=== PATIENT | female | born 1970 | race Caucasian/White ===

== ENCOUNTER 2023-10-12 19:22 | Emergency (ER) | payer BC, SELFPAY ==
[2023-10-12 19:25] VITALS: BP 177/86
[2023-10-12] MEDS: TYLENOL 650 MG PO (19:37)
[2023-10-12 19:57] LABS: COVID-19 Antigen Positive (Negative)
--- NOTE | 2023-10-12 21:34 | ED.GENMED ---
History of Present Illness
General
Chief Complaint: Cold/Flu/URI Symptoms
Source: patient
Time Seen by Provider: 10/12/23 21:27
Travel History
Have you had any contact with someone who has COVID-19?: No
Do you have any symptoms of coronavirus? Fever > 100 degrees, chills, cough, shortness of breath, sore throat, loss of taste or smell, muscle aches, or headache?: Yes
Symptoms:: fever
History of Present Illness
History of Present Illness:
53-year-old female presents emergency room complaining of sore throat. Positive chills. No shortness of breath. Patient has a distant history of breast cancer but under no treatment this time. She does not take any prescription medication though
does take [id number] Prilosec and antihistamine. She is tolerating oral intake.
Past History
Past History
ED Past Medical History: Cancer (breast)
ED Past Surgical History: Other (mastectomy)
Patient has exhibited threatening behavior?: No
Social History
Living: with family
Phy Exam
Physical Exam
Physical Exam:
General: Awake, Alert, Oriented X3. No acute distress.
Vitals: Febrile in triage
Head: Atraumatic
Eyes: Pupils equal, EOMI
Throat: Airway intact, no exudates
Neck: Trachea midline
Lungs: Clear and equal b/l
Heart: Regular rate, no murmurs
Neuro: Grossly nonfocal
Skin: Warm, dry, no rash
Extremities: pulses equal b/l, no edema
Course
Orders/Labs/Results
Orders:
Orders
10/12/23 19:30
Comprehensive Metabolic Panel Urgent
10/12/23 19:32
Acetaminophen [Tylenol] 650 mg PO NOW STA
10/12/23 19:45
COVID-19 Antigen Urgent
Source: Nasal Swab
Influenza A+B Rapid Molecular Urgent
[facility] Source: Nasal Swab
Specimen Description:
Rapid Strep Group A Urgent
[facility] Source: Throat/Pharynx
Specimen Description:
Date Specimen was Collected: 10/12/23
Time Specimen was Collected: 19:31
Abnormal Lab Results
10/12/23
19:45
SARS-CoV-2 Antigen Positive A
(Negative)
10/12/23 19:30
Vital Signs
Initial and Last Documented VS:
Initial Vital Signs
Temp Pulse Resp BP Pulse Ox
103.2 F H 140 18 177/86 98
10/12/23 19:25 10/12/23 19:25 10/12/23 19:25 10/12/23 19:25 10/12/23 19:25
Last Documented Vital Signs
Temp Pulse Resp BP Pulse Ox
103.2 F H 140 18 177/86 98
10/12/23 19:25 10/12/23 19:25 10/12/23 19:25 10/12/23 19:25 10/12/23 19:25
MDM/Problems Addressed
Differential Diagnosis Includes:
COVID, influenza, other viral illness
MDM/Problems Addressed:
Patient is COVID-positive. She is minimally symptomatic. She is tolerating oral intake. Discussed oral Paxlovid but patient has taken them before and does not wish to take them again.
*Pulse Oximetry
Patient hypoxic: no
*Critical Care Note
Total Time (30-74mins, 75-104mins- exclusive of procedures): Not Applicable
ED Attending Note
-
Portions of this chart may have been created with voice recognition software.� Occasional wrong word or��sound alike� substitutions may have occurred due to the inherent limitations of voice recognition software.
Discharge Plan
Departure
Patient Disposition: Home (Routine Discharge)
Date of Disposition: 10/12/23
Time of Disposition: 21:34
Patient with high blood pressure during this ER visit?: Yes
Condition: Good
Discharge Problem:
COVID-19
Instructions: COVID-19 (DC), BLOOD PRESSURE
Interventions
Interventions:
*Risk Screen - Suicide Last Done: 10/12/23 19:25
*General Assessment Last Done: 10/12/23 19:25
*Neglect/Abuse Screening Last Done: 10/12/23 19:25
ED- Fall Risk Assessment Last Done: 10/12/23 19:25
*ED COVID-19 Vaccine History Last Done: 10/12/23 19:25
*Nursing Disposition Last Done: 10/12/23 21:47
ED- Pulmonary Assessment Last Done: 10/12/23 21:37
Discharge Date and Time
Discharge Date/Time: 10/12/23 21:48
== END 2023-10-12 21:48 | disposition home or self-care (01) ==
LOC: EMR 19:22
PROVIDERS: Physician Assistant; EMERGENCY PHYSICIAN Emergency Medicine
DX: U07.1 COVID-19 (principal); R03.0 Elevated blood-pressure reading, without diagnosis of hypertension
CPT/HCPCS: 99283; 87070; 87502; 87811; 87880

== ENCOUNTER → 2023-11-12 08:40 | Outpatient (REF) | payer BC, SELFPAY | LOC: RAD 08:40 | PROVIDERS: ATTENDING PHYSICIAN Internal Medicine Cardiovascular Disease; FAMILY PHYSICIAN Internal Medicine | DX: Z85.3 Personal history of malignant neoplasm of breast (principal); Z90.13 Acquired absence of bilateral breasts and nipples; I65.29 Occlusion and stenosis of unspecified carotid artery | CPT/HCPCS: 93880 ==

== ENCOUNTER → 2024-12-07 09:58 | Outpatient (REF) | payer BC, SELFPAY ==
[2024-12-07 12:56] LABS: ALT (SGPT) 40 U/L (0-35); AST (SGOT) 34 U/L (14-36); Albumin 4.4 g/dl (3.5-5.0); Alkaline Phosphatase 117 U/L (38-126); Blood Urea Nitrogen 15 mg/dl (7-17); Carbon Dioxide 27 mmol/L (22-30); Chloride 103 mmol/L (98-107); Glucose 102 mg/dl (70-99); HDL Cholesterol 58 mg/dl; LDL Cholesterol, Calculated 132 mg/dl; Potassium 4.2 mmol/L (3.5-5.1); Sodium 139 mmol/L (135-145); Total Bilirubin 0.4 mg/dl (0.2-1.3); Total Cholesterol 233 mg/dl (50-199); Total Protein 7.2 g/dl (6.3-8.2); Triglyceride 218 mg/dl (10-149); Very Low Density Lipoprotein 43 mg/dl (0-30); eGFR > 60.00
[2024-12-07 13:06] LABS: % Basophils 1.5 % (0-2); % Eosinophils 2.3 % (0-6); % Immature Granulocytes 0.5 % (0-0.5); % Lymphocytes 26.5 % (20.5-51.1); % Monocytes 10.9 % (1.7-9.3); % Neutrophils 58.3 % (42.2-75.2); Absolute Basophils 0.1 10^3/uL (0-0.2); Absolute Eosinophils 0.1 10^3/uL (0-0.7); Absolute Lymphocytes 1.1 10^3/uL (1.2-3.4); Absolute Monocytes 0.4 10^3/uL (0.1-0.6); Absolute Neutrophils 2.3 10^3/uL (1.4-6.5); Hematocrit 38.6 % (37.0-47.0); Hemoglobin 13.4 g/dL (12.0-16.0); Mean Corp Hgb Conc. 34.7 g/dL (33.0-37.0); Mean Corpuscular Hgb 31.5 pg (27.0-31.0); Mean Corpuscular Volume 90.8 fL (81.0-99.0); Nucleated Red Blood Cells % 0 %; Red Blood Cell Count 4.25 10^6/uL (4.20-5.40); Red Cell Dist. Width 13.1 % (11.5-14.5)
[2024-12-07 13:20] LABS: Mean Platelet Volume 11.3 fL (7.4-10.4); Platelet Count 221 10^3/uL (130-400)
[2024-12-07 15:15] LABS: TSH 3.28 uIU/ml (0.47-4.68)
[2024-12-09 11:35] LABS: Rubeola (Measles) IgG Positive
== END ==
LOC: HWLAB 09:58
PROVIDERS: ATTENDING PHYSICIAN Nurse Practitioner
DX: R94.5 Abnormal results of liver function studies (principal); E78.2 Mixed hyperlipidemia; R73.03 Prediabetes
CPT/HCPCS: 36415; 80053; 80061; 83036; 84443; 85025; 86735; 86765

== ENCOUNTER → 2025-04-26 08:40 | Outpatient (REF) | payer BC, SELFPAY ==
[2025-04-26 12:04] LABS: ALT (SGPT) 22 U/L (0-35); AST (SGOT) 25 U/L (14-36); Albumin 4.7 g/dl (3.5-5.0); Alkaline Phosphatase 87 U/L (38-126); Blood Urea Nitrogen 16 mg/dl (7-17); Calcium 10.0 mg/dl (8.4-10.2); Carbon Dioxide 26 mmol/L (22-30); Chloride 105 mmol/L (98-107); Glucose 88 mg/dl (70-99); HDL Cholesterol 56 mg/dl; LDL Cholesterol, Calculated 134 mg/dl; Potassium 4.6 mmol/L (3.5-5.1); Sodium 139 mmol/L (135-145); Total Protein 7.3 g/dl (6.3-8.2); Very Low Density Lipoprotein 19 mg/dl (0-30); eGFR > 60.00
[2025-04-26 12:33] LABS: Glycohemoglobin (HgbA1c) 5.4 % (4.0-5.6)
== END ==
LOC: HWLAB 08:40
PROVIDERS: ATTENDING PHYSICIAN Nurse Practitioner; REFERRING PHYSICIAN Internal Medicine Cardiovascular Disease
DX: Z71.3 Dietary counseling and surveillance (principal); Z68.31 Body mass index [BMI] 31.0-31.9, adult; E78.2 Mixed hyperlipidemia; R73.03 Prediabetes; R73.02 Impaired glucose tolerance (oral)
CPT/HCPCS: 36415; 80053; 80061; 83036